=== PATIENT | female | born 1940 | race Caucasian/White ===

== ENCOUNTER 2017-06-20 11:31 | Inpatient (IN) | payer MEDICARE, OTHER ==
[~2017-06-20] VITALS: Ht 167.6 cm; Wt 120.2 kg
[~2017-06-20 11:31] MED LIST: ALBU8.5H8 IH; ALPR-323 PO; ASPI-605 PO; FAMO40TA7 PO; LORA-588 PO; METO50TA16 PO; MOME17SP NS; OLOP2.5D OP; SPIR25TA PO
--- NOTE | 2017-06-20 11:35 | NUR ---
BIBRA 909 C/O GENERALIZED WEAKNESS, BACK PAIN, BLISTERS NOTED ON BILATERAL DORSAL FEET, PITTING EDEMA TO BILATERAL LOWER EXTREMITIES , NAD NOTED, VSS, RESP EVEN AND UNLABORED, PT WAS PUT ON MONITOR, WAITING FOR MD MERCADO.
[2017-06-20 12:29] LABS: BASOPHILS # (AUTO) 0.3 /CMM (0.0-0.2); BASOPHILS % (AUTO) 2.8 % (0.0-2.0); EOSINOPHILS % (AUTO) 0.1 % (0.0-6.0); HEMATOCRIT 43 % (33-45); LYMPHOCYTES # (AUTO) 0.3 /CMM (0.8-4.8); LYMPHOCYTES % (AUTO) 3.7 % (20.0-44.0); MEAN CORPUSCULAR HEMOGLOBIN 33 PG (26.0-33.0); MEAN CORPUSCULAR HGB CONC 35 g/dl (31.0-36.0); MEAN CORPUSCULAR VOLUME 94 fL (82-100); MONOCYTES # (AUTO) 0.2 /CMM (0.1-1.30); MONOCYTES % (AUTO) 2.5 % (2.0-12.0); NEUTROPHILS # (AUTO) 8.4 /CMM (1.8-8.9); NEUTROPHILS % (AUTO) 90.9 % (43.0-81.0); PLATELET COUNT (AUTO) 141 /CMM (150-450); RDW COEFFICIENT OF VARIATION 13.6 (11.5-15.0); RED BLOOD CELL COUNT(AUTO) 4.59 MIL/uL (4.0-5.2); WHITE BLOOD COUNT (AUTO) 9.2 K/uL (4.3-11.0)
[2017-06-20 12:33] LABS: INR 1.28 (0.85-1.15)
[2017-06-20 12:33] LABS: APPEARANCE,URINE Clear (CLEAR); BILIRUBIN,URINE Negative (NEGATIVE); BLOOD, URINE Negative Ery/uL (NEGATIVE); COLOR,URINE Yellow (YELLOW); KETONES,URINE Negative (NEGATIVE); LEUKOCYTE ESTERASE ,URINE Negative (NEGATIVE); NITRITE, URINE Negative (NEGATIVE); PH,URINE 7.5 (5.0-8.0); PROTEIN,URINE Negative (NEGATIVE); UGLUCOSE Negative (NEGATIVE); UROBILINOGEN,URINE 0.2 EU/dL (0.2)
[2017-06-20 12:36] LABS: TROPONIN I 0.022 ng/mL (0.00-0.056)
--- NOTE | 2017-06-20 12:46 | NUR ---
CALLED [facility] ADMISSIONS AND RECORDS DEPARTMENT,THEY ARE CLOSED. I CALLED THE EMERGENCY DEPARTMENT , THEY TOLD ME ONLY MEDICAL RECORDS DEPARTMENT CAN HELP ME.
[2017-06-20 12:47] LABS: ALANINE AMINOTRANSFERASE 39 U/L (12-78); ALBUMIN 3.1 g/dL (3.4-5.0); ALKALINE PHOSPHATASE 96 U/L (46-116); ASPARTATE AMINOTRANSFERASE 40 U/L (15-37); B-TYPE NATRIURETIC PEPTIDE 274 PG/ML (0-125); BILIRUBIN,DIRECT 0.7 mg/dL (0.0-0.2); BILIRUBIN,TOTAL 2.7 mg/dL (0.2-1.0); CALCIUM, SERUM 9.5 mg/dL (8.5-10.1); CARBON DIOXIDE 32 mmol/L (21-32); CHLORIDE 96 mmol/L (98-107); CREATININE 1.3 mg/dL (0.6-1.3); GLUCOSE 131 mg/dL (74-106); SODIUM SERUM 135 mmol/L (136-145); TOTAL PROTEIN, SERUM 6.9 g/dL (6.4-8.2); UREA NITROGEN, BLOOD 51 mg/dL (7-18)
[2017-06-20 12:49] LABS: POTASSIUM 2.8 mmol/L (3.5-5.1)
[2017-06-20] MEDS ORDERED: POTASSIUM CHLORIDE 20 MEQ TAB.PRT.SR PO ONE ×2 (13:00→13:04)
[2017-06-20] MEDS: POTASSIUM CL. PREMIX PERIPHER. 50 ML IV SCH ×2 (13:00→14:50)
--- NOTE | 2017-06-20 13:52 | NUR ---
PT TO [facility]SCAN
[2017-06-20] MEDS ORDERED: METO-356 PO (14:19)
[2017-06-20] MEDS ORDERED: APIX5TAB PO (14:19)
[2017-06-20] MEDS ORDERED: DIPH1TAB PO (14:19)
[2017-06-20] MEDS ORDERED: FURO-144 PO (14:19)
[2017-06-20] MEDS ORDERED: AMIO200T2 PO (14:19)
[2017-06-20] MEDS ORDERED: FLUT16SP NS (14:19)
[2017-06-20] MEDS ORDERED: BENZ-13 PO (14:19)
--- NOTE | 2017-06-20 14:25 | NUR ---
PT BACK FROM [facility]SCAN
[2017-06-20 14:45] VITALS: BP 119/76
[2017-06-20 14:55] VITALS: BP 125/60
--- NOTE | 2017-06-20 14:55 | NUR ---
PATIENT ARRIVED TO THE UNIT VIA GURNEY ACCOMPANIED BY PROFILING MACHINE SET UP OPERATOR TOOL AND TECH. PATIENT IS A/O X3, COOPERATIVE OBESE FEMALE. ASSISTED TO BED SAFELY. BED IS LOCKED, IN LOWEST POSITION, SIDE RIALS UP X3, BED ALARM IS ON. CALL LIGHT WITHIN REACH. PATIENT EDUCATED TO USE THE CALL LIGHT TO CALL FOR ASSISTANCE. VERBALIZED UNDERSTANDING. WILL CONTINUE TO ASSES/MONITOR THROUGHOUT THE SHIFT.
[2017-06-20] MEDS ORDERED: DIPHENOXYLATE HCL/ATROP SULF 1 UDTAB TABLET PO PRN (16:30)
[2017-06-20] MEDS ORDERED: MAG HYDROX/AL HYDROX/SIMETH 30 ML UDC PO PRN (16:30)
[2017-06-20] MEDS ORDERED: ENOXAPARIN SODIUM 40 MG/0.4 ML DISP.SYRIN SQ SCH (16:30)
[2017-06-20] MEDS ORDERED: ONDANSETRON HCL/PF 4 MG/2 ML VIAL IVP PRN (16:30)
[2017-06-20] MEDS ORDERED: HYDROCODONE/APAP 10/325MG 1 EA TABLET PO PRN (16:30)
[2017-06-20] MEDS ORDERED: ACETAMINOPHEN 325 MG TABLET PO PRN (16:30)
[2017-06-20] MEDS ORDERED: FLUTICASONE PROPIONATE 16 GM BOTTLE NS PRN (16:30)
[2017-06-20] MEDS ORDERED: MAGNESIUM HYDROXIDE 30 ML UDC PO PRN (16:30)
[2017-06-20] MEDS ORDERED: Z GUARD REMEDY 2 OZ OINT TP PRN (16:30)
[2017-06-20] MEDS ORDERED: APIXABAN 5 MG TABLET PO ONE (17:00)
[2017-06-20] MEDS: ALPRAZOLAM 0.25 MG TABLET PO SCH (17:34)
[2017-06-20] MEDS: BENZONATATE 100 MG CAPSULE PO PRN ×2 (17:37→23:28)
[2017-06-20] MEDS: IV 1/2NS 1000 ML 1,000 ML IV PRN (17:38)
[2017-06-20] MEDS: HYDROMORPHONE INJ 0.5 MG/0.5 ML SYRINGE IV PRN ×2 (17:38→23:31)
[2017-06-20] MEDS: APIXABAN 5 MG TABLET PO SCH (18:55)
--- NOTE | 2017-06-20 19:15 | NUR ---
RN OPENING NOTES PATIENT RECEIVED IN BED, ASLEEP BUT EASILY AROUSABLE, ALERT AND ORIENTED X 4, NO SOB NOTED, BREATHING EVEN AND UNLABORED, NO C/O PAIN AT THIS TIME, IN NO ACUTE DISTRESS. PATIENT CONTINUES TO RECEIVE IVF ORDERED, ALL PATIENT'S NEEDS ATTENDED TO AT THIS TIME, PLACED BED IN LOW POSITION AND LOCKED IN PLACE. WILL CONTINUE TO MONITOR PT.
--- NOTE | 2017-06-20 19:16 | NUR ---
EMISSIONS TECHNICIAN CLOSING NOTE SBAR REPORT GIVEN ON PATIENT TO GIS TECHNICIAN NURSE FOR REGULO. PATIENT IS A/O X3, COOPERATIVE OBESE FEMALE. ASSISTED TO BED SAFELY. BED IS LOCKED, IN LOWEST POSITION, SIDE RIALS UP X3, BED ALARM IS ON. CALL LIGHT WITHIN REACH. PATIENT EDUCATED TO USE THE CALL LIGHT TO CALL FOR ASSISTANCE. VERBALIZED UNDERSTANDING. PAIN IS CURRENTLY CONTROLLED WITH ADMINISTERED HYDROMORPHONE. PATIENT HAS MULTIPLE SKIN CONDITIONS. ALL DOCUMENTED, PICTURES POSTED IN THE CHART. ALL DUE MEDICATIONS ADMINISTERED. ENDORSED TO THE GIS TECHNICIAN NURSE FOR REGULO.
[2017-06-20 20:00] VITALS: BP 126/75
[2017-06-21] VITALS (8 sets, daily range): BP systolic 100–132; BP diastolic 60–82
[2017-06-21] MEDS: HYDROMORPHONE INJ 0.5 MG/0.5 ML SYRINGE IV PRN ×3 (04:01→17:59)
[2017-06-21] MEDS: IV 1/2NS 1000 ML 1,000 ML IV PRN ×2 (06:42→20:06)
--- NOTE | 2017-06-21 06:57 | NUR ---
RN CLOSING NOTE PATIENT IN BED, ALERT AND ORIENTED X 3, VERBALLY RESPONSIVE. NOTED WITH NO SOB, BREATHING EVEN AND UNLABORED, IN NO ACUTE DISTRESS. ALL PATIENT'S NEEDS ATTENDED TO. CALL LIGHT PLACED WITHIN EASY REACH, BED LOCKED IN PLACE AND IN LOW POSITION. CONTINUES TO RECEIVE IVF ORDER VIA IV PERIPHERAL LINE ON LEFT UPPER ARM G#20. CALL LIGHT PLACED WITHIN EASY REACH. WILL ENDORSE TO AM NURSE FOR CONTINUITY OF CARE.
[2017-06-21 07:26] LABS: BASOPHILS % (AUTO) 0.4 % (0.0-2.0); EOSINOPHILS % (AUTO) 0.7 % (0.0-6.0); HEMATOCRIT 38 % (33-45); HEMOGLOBIN 12.9 g/dL (11.5-14.8); LYMPHOCYTES # (AUTO) 1.1 /CMM (0.8-4.8); LYMPHOCYTES % (AUTO) 16.9 % (20.0-44.0); MEAN CORPUSCULAR HEMOGLOBIN 33 PG (26.0-33.0); MEAN CORPUSCULAR HGB CONC 34 g/dl (31.0-36.0); MEAN CORPUSCULAR VOLUME 98 fL (82-100); MONOCYTES # (AUTO) 0.8 /CMM (0.1-1.30); MONOCYTES % (AUTO) 12.6 % (2.0-12.0); NEUTROPHILS # (AUTO) 4.4 /CMM (1.8-8.9); NEUTROPHILS % (AUTO) 69.4 % (43.0-81.0); PLATELET COUNT (AUTO) 106 /CMM (150-450); RDW COEFFICIENT OF VARIATION 14.7 (11.5-15.0); RED BLOOD CELL COUNT(AUTO) 3.86 MIL/uL (4.0-5.2); WHITE BLOOD COUNT (AUTO) 6.4 K/uL (4.3-11.0)
[2017-06-21 07:38] LABS: CALCIUM, SERUM 8.6 mg/dL (8.5-10.1); CARBON DIOXIDE 36 mmol/L (21-32); CHLORIDE 100 mmol/L (98-107); CREATININE 0.9 mg/dL (0.6-1.3); GLUCOSE 82 mg/dL (74-106); MAGNESIUM 1.9 mg/dL (1.8-2.4); PHOSPHORUS 2.8 mg/dL (2.5-4.9); POTASSIUM 3.2 mmol/L (3.5-5.1); SODIUM SERUM 140 mmol/L (136-145); UREA NITROGEN, BLOOD 34 mg/dL (7-18)
--- NOTE | 2017-06-21 07:41 | NUR ---
HULL BUILDER OPENING NOTES RECEIVED PATIENT IN BED ASLEEP COMFORTABLY. EASILY AROUSED WITH VERBAL STIMULI. NO APPARENT DISTRESS NOTED. RESPIRATIONS EVEN AND UNLABORED. PATIENT KEPT CLEAN AND COMFORTABLE. PERIPHERAL IV ON LEFT UPPER ARM #20, PATENT AND INTACT, WITH IV FLUIDS INFUSING AT THIS TIME. ALL SAFETY MEASURES AR IN PLACE, BED IS IN LOW LOCKED POSITION, CALL LIGHT WITHIN EASY REACH. WILL CONTINUE TO MONITOR.
[2017-06-21 07:50] LABS: CHOLESTEROL 112 mg/dL (<200); HDL CHOLESTEROL 41 mg/dL (40-60); LDL 61 mg/dL (0-99); THYROID STIMULATING HORMONE 3.205 uIU/mL (0.358-3.74); TRIGLYCERIDES 73 mg/dL (30-150)
[2017-06-21] MEDS: ALPRAZOLAM 0.25 MG TABLET PO SCH ×3 (09:00→17:58)
--- NOTE | 2017-06-21 09:00 | NUR ---
MS RN HELD MORNING MEDICATIONS DUE TO PATIENTS NPO ORDER. REPORTED, WAITING FOR MD'S CLARIFICATION.
--- NOTE | 2017-06-21 10:31 | NUR ---
television presenter notes Informed Dr. Dailey regarding patient is NPO for MRI but no order and per MD to discontinue NPO status and resume previous diet order. All orders carried out and noted. Will continue to monitor accordingly.
[2017-06-21] MEDS: SPIRONOLACTONE 25 MG TABLET PO SCH (10:51)
[2017-06-21] MEDS: AMIODARONE HCL 200 MG TABLET PO SCH (10:52)
[2017-06-21] MEDS: APIXABAN 5 MG TABLET PO SCH ×2 (10:53→17:58)
[2017-06-21] MEDS: FUROSEMIDE 40 MG TABLET PO SCH (10:54)
[2017-06-21] MEDS: METOPROLOL SUCCINATE 25 MG TAB.SR.24H PO SCH (10:54)
--- NOTE | 2017-06-21 10:57 | NUR ---
MANAGER ACTIVITIES NOTES PATIENT NPO WAS CLEARED BY MD. ORDERED TO ADMINISTER ALL MORNING MEDICATION.
--- NOTE | 2017-06-21 10:58 | NUR ---
HELD TOPROL DUE TO HR OF 50/MIN
--- NOTE | 2017-06-21 10:59 | NUR ---
PATIENT REFUSED XANAX AT THIS TIME.
[2017-06-21] MEDS: POTASSIUM CHLORIDE 20 MEQ TAB.PRT.SR PO SCH ×2 (12:20→14:08)
[2017-06-21] MEDS: BENZONATATE 100 MG CAPSULE PO PRN (14:09)
[2017-06-21] MEDS ORDERED: IOHEXOL-300 100 ML VIAL IV ONE (16:59)
[2017-06-21] MEDS ORDERED: IV NS 0.9% 250 ML IV ONE (16:59)
--- NOTE | 2017-06-21 19:04 | NUR ---
MS RN CLOSING NOTES. PATIENT IN BED RESTING COMFORTABLY, ASLEEP EASILY AROUSED WITH VERBAL STIMULI. ON ROOM AIR. RESPIRATIONS EVEN AND UNLABORED DENIES SOB, CHEST PAIN. NO APPARENT SIGNS OF DISTRESS OR DISCOMFORT NOTED OR REPORTED AT THIS TIME. PATIENT WAS GIVEN DILAUDID FOR PAIN AFTER COMING BACK FROM CT AT 1759. LEFT HAND HEPLOCK 20G, PATENT AND INTACT WITH IV FLUIDS RUNNING AT 75ML/HR. SAFETY MEASURES PROVIDED, BED IN LOW LOCKED POSITION, SIDE RAILS UP X2, CALL LIGHT WITHIN EASY REACH. WILL ENDORSE TO PM SHIFT FOR CONTINUATION OF CARE.
--- NOTE | 2017-06-21 19:46 | NUR ---
MRI APPROVED, IT WILL BE DONE TOMORROW.
--- NOTE | 2017-06-21 19:55 | NUR ---
Ms/rn opening notes Patient in bes,awake, resting comfortably in bed. Iv on left hand, check for patency and no redness. Skin warm to touch, Able to verbalixe needs. no s/s of guarding or grimace. bed in lock position, call lights within reach. offered fluids. Will replace iv fluids. will continue to monitor.
--- NOTE | 2017-06-21 23:53 | NUR ---
ms/rn notes Patient reported back pain 10/10 , will prvode pain medication and assist reposition for comfort.
[2017-06-22] VITALS (9 sets, daily range): BP systolic 109–132; BP diastolic 57–70
[2017-06-22] MEDS: BENZONATATE 100 MG CAPSULE PO PRN ×2 (03:06→22:50)
[2017-06-22 06:50] LABS: CALCIUM, SERUM 8.6 mg/dL (8.5-10.1); CARBON DIOXIDE 32 mmol/L (21-32); CHLORIDE 101 mmol/L (98-107); GLUCOSE 90 mg/dL (74-106); POTASSIUM 3.2 mmol/L (3.5-5.1); SODIUM SERUM 141 mmol/L (136-145); UREA NITROGEN, BLOOD 33 mg/dL (7-18)
--- NOTE | 2017-06-22 06:50 | NUR ---
ms/rn notes Mri of L spine without contrast order, patient was informed and signed consent and checklist done, Home medications will be picked up by caregiver.
--- NOTE | 2017-06-22 06:57 | NUR ---
310-2 rn notes Patient iresting in bed, respirations even and unlabored, on room air. Pain management monitoirng, Complain of back pain. Cooperative to care. Reposition for comfort and elevate feet. BLE edema . Skin warm to touch, Call lights within reach, provide fluids, bed in lock positon, IV on left hand patent, will endorse to am rn for ap. Procedure MRI without contrast order, patient was informed, signed consent.
--- NOTE | 2017-06-22 07:00 | NUR ---
RN NOTES: PATIENT RESTING IN BED. AOX4. NONLABORED BREATHING ON ROOM AIR. PATIENT DENIES PAIN. IV SITE ON LEFT HAND PATENT AND INTACT. BED IN LOWEST LOCKED POSITION. CALL LIGHT WITHIN REACH. PATIENT ON TELE MONITOR WITH CONTROLLED AFIB WITH HR IN 90S. WILL CONTINUE TO MONITOR
[2017-06-22] MEDS: HYDROMORPHONE INJ 0.5 MG/0.5 ML SYRINGE IV PRN ×3 (08:53→22:49)
[2017-06-22] MEDS: SPIRONOLACTONE 25 MG TABLET PO SCH (09:55)
[2017-06-22] MEDS: APIXABAN 5 MG TABLET PO SCH ×2 (09:55→18:05)
[2017-06-22] MEDS: ALPRAZOLAM 0.25 MG TABLET PO SCH ×3 (09:55→18:04)
[2017-06-22] MEDS: AMIODARONE HCL 200 MG TABLET PO SCH (10:45)
[2017-06-22] MEDS: METOPROLOL SUCCINATE 25 MG TAB.SR.24H PO SCH (10:45)
--- NOTE | 2017-06-22 10:45 | NUR ---
RN NOTES: AMIODARONE AND METOPROLOL AM DOSE HELD-- BP AT 100/58 WITH HEART RATE 70
[2017-06-22] MEDS: FUROSEMIDE 40 MG TABLET PO SCH (11:17)
[2017-06-22] MEDS: POTASSIUM CHLORIDE 20 MEQ TAB.PRT.SR PO SCH ×2 (11:18→12:47)
--- NOTE | 2017-06-22 11:20 | NUR ---
RN NOTES: PATIENT BEING MONITORED FOR LOW BLOOD PRESSURE THROUGHTOUT YONATHAN. PATIENT REFUSED LASIX EARLIER, NOW ADMINISTERED. BP WNL
--- NOTE | 2017-06-22 11:58 | NUR ---
WOUND CARE CONSULT: PT PRESENTS WITH BLISTERS TO BILATERAL DORSAL FEET, PRESENT ON ADMISSION. RT FOOT BLISTER IS OPEN AND LEFT IS INTACT BUT FLUID FILLED. PT ALSO NOTED TO HAVE BRUISING TO LOWER EXTREMITIES, RASH TO ABDOMINAL/GROIN SKIN FOLDS AND TINY SCABS TO LEFT BUTTOCK AREA, ALL PRESENT ON ADMISSION. PT GETS UP TO COMMODE WITH ASSISTANCE. CURRENT SANTOSH SCORE IS 16. PT IS CONTINENT. ALL SKIN PROTECTION MEASURES IN PLACE AND DISCUSSED WITH NURSING STAFF. WOUND CARE RECOMMENDATIONS DISCUSSED WITH NURSING STAFF. WILL SEE PRN. M D IN AGREEMENT WITH PLAN OF CARE.
[2017-06-22] MEDS: CLOTRIMAZOLE 1% 15 GM TUBE TP SCH ×2 (14:00→18:06)
--- NOTE | 2017-06-22 14:15 | NUR ---
RN NOTES: PATIENT REFUSING XANAX EARLIER , TOOK MEDICATION NOW
--- NOTE | 2017-06-22 14:15 | NUR ---
RN NOTES PATIENT REFU
--- NOTE | 2017-06-22 14:30 | NUR ---
RN NOTES: PATIENT REFUSING LOTRIMIN NOW, KEPT CLEAN AND DRY, ACCORDING TO PATIENT, SHE WANTS IT LATER. WILL CONTINUE TO OFFER.
--- NOTE | 2017-06-22 14:48 | NUR ---
RN NOTES: PER DR RC SIMTH ORDERED IV FLUIDS TODAY. SLIGHT CRACKLES HEARD ON LEFT LOWER LOBE UPON AUSCULATION
--- NOTE | 2017-06-22 15:42 | NUR ---
rn notes: HR noted to be 99-110 on monitor, patient turning and repositioning. no signs of distress. no sob. will continue to monitor. warm packs offered for lower back pain
--- NOTE | 2017-06-22 15:47 | NUR ---
RN NOTES: PATIENT RESTING IN BED WITH HEART RATE OF 88. NO SOB NOTED
--- NOTE | 2017-06-22 16:53 | NUR ---
PATIENT BEING MONITORED FOR SIGNS OF BLEEDING.NO ACTIVE SIGNS OF BLEEDING NOTED
--- NOTE | 2017-06-22 19:30 | NUR ---
NUMERICAL CONTROL OPERATOR NOTE PATIENT RESTING IN BED. AOX4. NONLABORED BREATHING ON ROOM AIR. PATIENT DENIES PAIN. IV SITE ON LEFT HAND PATENT AND INTACT. BED IN LOWEST LOCKED POSITION. CALL LIGHT WITHIN REACH. PATIENT ON TELE MONITOR WITH CONTROLLED AFIB WITH HR IN 70S. BED LOCKED AND IN LOWEST POSITION. SIDE RAILS UP CALL LIGHT WITHIN REACH.
--- NOTE | 2017-06-22 19:40 | NUR ---
RN NOTES: PATIENT RESTING IN BED. AOX4. NONLABORED BREATHING ON ROOM AIR. PATIENT DENIES PAIN. IV SITE ON LEFT HAND PATENT AND INTACT. BED IN LOWEST LOCKED POSITION. CALL LIGHT WITHIN REACH. PATIENT ON TELE MONITOR WITH CONTROLLED AFIB WITH HR IN 70S. MILK OF MAGNESIA ADMINSTERED, PATIENT COMPLAINING OF CONSTIPATION. ENDORSED TO NEXT SHIFT DURING SHIFT, PATIENT ENCOURAGED TO TURN AND REPOSITION EVERY 2 HOURS, ENCOURAGED TO KEEP CLEAN AND DRY. PATIENT REFUSING TO WEAR A DIAPER, STATES THAT SHE WANTS TO ONLY WEAR UNDERWEAR AND PADS ON. PATIENT REFUSED TO HAVE WOUND CARE DONE LOWER EXTREMITIES AGAIN, STATING THAT IT HAS BEEN DONE EARLIER. BENEFITS AND RISKS EXPLAINED
[2017-06-23] VITALS: BP 116/63
[2017-06-23 04:00] VITALS: BP 104/62
--- NOTE | 2017-06-23 06:47 | NUR ---
GROOVER RUNNER NOTE PATIENT STABLE. SLEEPING AT THIS TIME. ALL NEEDS MET AND ATTENDED TO. WILL ENDORSE TO DAY SHIFT FOR REGULO.
--- NOTE | 2017-06-23 07:05 | NUR ---
RN NOTES: RN NOTES: PATIENT RESTING IN BED. AOX4. NONLABORED BREATHING ON ROOM AIR. PATIENT DENIES PAIN. IV SITE ON LEFT HAND PATENT AND INTACT. BED IN LOWEST LOCKED POSITION. CALL LIGHT WITHIN REACH. PATIENT ON TELE MONITOR WITH CONTROLLED AFIB WITH HR IN 70S. BED IN LOWEST LOCKED POSITION. CALL LIGHT WITHIN REACH
[2017-06-23] MEDS: HYDROMORPHONE INJ 0.5 MG/0.5 ML SYRINGE IV PRN (08:16)
[2017-06-23] MEDS: METOPROLOL SUCCINATE 25 MG TAB.SR.24H PO SCH (09:00)
[2017-06-23] MEDS ORDERED: HYDROGEL DRESSING 90 GM TUBE TP SCH (09:00)
[2017-06-23] MEDS: AMIODARONE HCL 200 MG TABLET PO SCH (09:00)
[2017-06-23] MEDS ORDERED: CLOTRIMAZOLE 1% 15 GM TUBE TP SCH (09:00)
--- NOTE | 2017-06-23 09:00 | NUR ---
RN NOTES: PATIENT REFUSING TO GET CHANGED, AND WOUND TREATMENT. STATES THAT SHE WANTS IT LATER. AND THAT SHE WANTS TO HAVE A BOWEL MOVEMENT FIRST
[2017-06-23 09:50] VITALS: BP 120/70
[2017-06-23] MEDS: APIXABAN 5 MG TABLET PO SCH (10:00)
[2017-06-23] MEDS: FUROSEMIDE 40 MG TABLET PO SCH (10:21)
[2017-06-23] MEDS: SPIRONOLACTONE 25 MG TABLET PO SCH (10:21)
[2017-06-23] MEDS: ALPRAZOLAM 0.25 MG TABLET PO SCH ×2 (10:22→14:34)
--- NOTE | 2017-06-23 12:00 | NUR ---
RN NOTES: ELQUIS HELD IN AM. BOWEL MOVEMENT NOTED TO BE TARRY, BLACK. PATIENT DENIES ABDOMINAL CRAMPS, DENIES NAUSEA AND VOMITTING. DISCUSSED WITH PATIENT BENEFITS AND RISKS OF ELQUIS. STOOL COLLECTED. PATIENT STATED THAT SHE DOES NOT WANT TO TAKE IT TODAY. VS WNL. YIN BARAJAS NP, INFORMED. NO NEW ORDERS
[2017-06-23] MEDS ORDERED: HYDR-3974 PO (12:01)
[2017-06-23] MEDS ORDERED: CLOT15CR35 TP (12:01)
[2017-06-23] MEDS ORDERED: Hydrocodone/Apap 10/325MG PO (12:01)
[2017-06-23] MEDS: HYDROCODONE/APAP 5/325MG 1 EACH TABLET PO PRN ×2 (12:23→16:28)
[2017-06-23] MEDS: CLOTRIMAZOLE 1% 15 GM TUBE TP SCH (12:24)
[2017-06-23 12:38] LABS: BASOPHILS % (AUTO) 0.4 % (0.0-2.0); EOSINOPHILS # (AUTO) 0.1 /CMM (0.0-0.7); EOSINOPHILS % (AUTO) 1.3 % (0.0-6.0); HEMATOCRIT 37 % (33-45); HEMOGLOBIN 12.6 g/dL (11.5-14.8); LYMPHOCYTES # (AUTO) 0.9 /CMM (0.8-4.8); LYMPHOCYTES % (AUTO) 11.9 % (20.0-44.0); MEAN CORPUSCULAR HEMOGLOBIN 34 PG (26.0-33.0); MEAN CORPUSCULAR HGB CONC 34 g/dl (31.0-36.0); MEAN CORPUSCULAR VOLUME 98 fL (82-100); MONOCYTES # (AUTO) 0.7 /CMM (0.1-1.30); MONOCYTES % (AUTO) 9.2 % (2.0-12.0); NEUTROPHILS # (AUTO) 6.1 /CMM (1.8-8.9); NEUTROPHILS % (AUTO) 77.2 % (43.0-81.0); PLATELET COUNT (AUTO) 132 /CMM (150-450); RDW COEFFICIENT OF VARIATION 14.5 (11.5-15.0); RED BLOOD CELL COUNT(AUTO) 3.76 MIL/uL (4.0-5.2); WHITE BLOOD COUNT (AUTO) 7.9 K/uL (4.3-11.0)
[2017-06-23 12:46] LABS: CALCIUM, SERUM 8.8 mg/dL (8.5-10.1); CARBON DIOXIDE 34 mmol/L (21-32); CHLORIDE 104 mmol/L (98-107); CREATININE 1.2 mg/dL (0.6-1.3); GLUCOSE 148 mg/dL (74-106); POTASSIUM 3.1 mmol/L (3.5-5.1); SODIUM SERUM 142 mmol/L (136-145); UREA NITROGEN, BLOOD 33 mg/dL (7-18)
[2017-06-23 12:52] LABS: ALANINE AMINOTRANSFERASE 41 U/L (12-78); ALBUMIN 2.7 g/dL (3.4-5.0); ALKALINE PHOSPHATASE 88 U/L (46-116); ASPARTATE AMINOTRANSFERASE 42 U/L (15-37); BILIRUBIN,DIRECT 0.6 mg/dL (0.0-0.2); BILIRUBIN,TOTAL 2.1 mg/dL (0.2-1.0); TOTAL PROTEIN, SERUM 6.1 g/dL (6.4-8.2)
[2017-06-23] MEDS ORDERED: POTASSIUM CHLORIDE 20 MEQ TAB.PRT.SR PO ONE (14:00)
[2017-06-23] MEDS ORDERED: POTASSIUM CHLORIDE 20 MEQ TAB.PRT.SR PO SCH (14:00)
--- NOTE | 2017-06-23 14:31 | NUR ---
RN NOTES PATIENT REFUSING XANAX EARLIER, AGREED TO TAKE NOW. POTASSIUM 40 MEQ PER YIN BARAJAS NP
[2017-06-23 16:00] VITALS: BP 113/58
--- NOTE | 2017-06-23 17:29 | NUR ---
RN NOTES: PATIENT DISCHARGED TO [facility] PER YIN BARAJAS, POLE SHAVER, ORDERS. PATIENT STABLE. VS WNL. DENIES PAIN AT THE MOMENT. AOX4., DENIES ANXIETY AT THE MOMENT. NO FACIAL GRIMACING NOTED. IV LINE REMOVED. SPO2 AT ROOM AIR WNL. WOUND CARE DONE DURING SHIFT. PATIENT BLISTERS ON BUTTOCKS PEELING AND A PINK BED NOTED. CLEANSED WITH NS, TREATMENT PER ORDERS, COVERED WITH MEPLIX.PATIENT EDUCATED ON HYGIENE. SKIN PICTURES IN CHART PLACED. IV LINE REMOVED. ALL VALUABLES RETURNED TO PATIENT. MEDICATIONS GIVEN TO CAREGIVER,MARANDA PER PATIENT'S REQUEST TO BE RETURNED TO PATIENT'S HOME. NO SIGNS OF BLEEDING DURING SHIFT. H&H WNL. PATIENT LEFT VIA AMBULANCE, REPORT GIVEN TO EMORY MACEDO AT FACILITY
--- NOTE | 2017-06-23 17:30 | NUR ---
RN NOTES: PATIENT TOLERATED PHYSICAL THERAPY TODAY WITH NO COMPLICATIONS. TLSO BRACE SENT WITH PATIENT UPON DISCHARGE. EMORY MACEDO INSTRUCTED AND NOTIFIED AT [facility]
== END 2017-06-23 17:30 | DRG 543 ==
LOC: ER 11:36 → TELE 14:02 → MED 06-23 09:31
DX: M48.56XA Collapsed vertebra, not elsewhere classified, lumbar region, initial encounter for fracture (principal); E44.0 Moderate protein-calorie malnutrition; D68.59 Other primary thrombophilia; D69.6 Thrombocytopenia, unspecified; G62.9 Polyneuropathy, unspecified; E66.01 Morbid (severe) obesity due to excess calories; I48.91 Unspecified atrial fibrillation; I11.0 Hypertensive heart disease with heart failure; I50.32 Chronic diastolic (congestive) heart failure; L03.115 Cellulitis of right lower limb; L03.116 Cellulitis of left lower limb; Z68.41 Body mass index [BMI] 40.0-44.9, adult; F32.9 Major depressive disorder, single episode, unspecified; F41.9 Anxiety disorder, unspecified; W19.XXXA Unspecified fall, initial encounter; M79.7 Fibromyalgia; K21.9 Gastro-esophageal reflux disease without esophagitis; K74.60 Unspecified cirrhosis of liver; Z85.828 Personal history of other malignant neoplasm of skin; Z88.0 Allergy status to penicillin; Z88.2 Allergy status to sulfonamides; Y93.9 Activity, unspecified; Y92.009 Unspecified place in unspecified non-institutional (private) residence as the place of occurrence of the external cause; R23.8 Other skin changes; R74.8 Abnormal levels of other serum enzymes; R00.1 Bradycardia, unspecified
CPT/HCPCS: 36415; 71045-TC; 72131-TC; 74178; 76700-TC; 80048-TC; 80061-TC; 80076-TC; 81000-TC; 82962-TC; 83735-TC; 83880; 84100-TC; 84443-TC; 84484-TC; 85025-TC; 85730-TC; 87081-TC; 93307-TC; 97116-TC; 97530-TC; A4606; A6248; A6253; A6402; J3480; J3490; J7040; J7050; Q9967; Z7610

== ENCOUNTER 2019-03-25 10:47 | Emergency (ER) | payer MEDICARE, OTHER ==
[~2019-03-25] VITALS: Ht 167.6 cm; Wt 108.0 kg
[~2019-03-25 10:47] MED LIST changes: -ALBU8.5H8 IH; +AMIO200T4 PO; +APIX5TAB PO; -ASPI-605 PO; +BENZ-13 PO; +CLOT15CR35 TP; +DIPH1TAB PO; +FLUT16SP NS; +FURO-144 PO; +HYDR-3974 PO; +Hydrocodone/Apap 10/325MG PO; +METO25TA4 PO; -METO50TA16 PO; -MOME17SP NS; -OLOP2.5D OP
--- NOTE | 2019-03-25 10:50 | NUR ---
CAME IN FOR R RIB PAIN SINCE YESTERDAY, -TRAUMA. TO ER BED 9, HOOKED TO MONITOR, CHANGED TO HOSP [facility], AWAITING MD MERCADO.
[2019-03-25] MEDS ORDERED: ASPIRIN 81 MG TAB.CHEW PO ONE (11:00)
[2019-03-25] MEDS ORDERED: NITROGLYCERIN PACKET 1 GM PACKET TD ONE (11:00)
--- NOTE | 2019-03-25 11:03 | NUR ---
GAS STATION SERVICE ATTENDANT AT BEDSIDE
[2019-03-25 11:04] LABS: BASOPHILS # (AUTO) 0.1 /CMM (0.0-0.2); BASOPHILS % (AUTO) 3.8 % (0.0-2.0); EOSINOPHILS % (AUTO) 4.3 % (0.0-6.0); HEMATOCRIT 31 % (33-45); HEMOGLOBIN 9.9 g/dL (11.5-14.8); LYMPHOCYTES # (AUTO) 1.1 /CMM (0.8-4.8); LYMPHOCYTES % (AUTO) 32.9 % (20.0-44.0); MEAN CORPUSCULAR HGB CONC 32 g/dl (31.0-36.0); MEAN CORPUSCULAR VOLUME 85 fL (82-100); MONOCYTES # (AUTO) 0.5 /CMM (0.1-1.30); MONOCYTES % (AUTO) 14.1 % (2.0-12.0); NEUTROPHILS # (AUTO) 1.5 /CMM (1.8-8.9); NEUTROPHILS % (AUTO) 44.9 % (43.0-81.0); PLATELET COUNT (AUTO) 169 /CMM (150-450); WHITE BLOOD COUNT (AUTO) 3.4 K/uL (4.3-11.0)
[2019-03-25 11:21] LABS: ALANINE AMINOTRANSFERASE 22 U/L (12-78); ALBUMIN 3.3 g/dL (3.4-5.0); ALKALINE PHOSPHATASE 109 U/L (46-116); ASPARTATE AMINOTRANSFERASE 31 U/L (15-37); BILIRUBIN,DIRECT 0.4 mg/dL (0.0-0.2); BILIRUBIN,TOTAL 1.4 mg/dL (0.2-1.0); CALCIUM, SERUM 8.7 mg/dL (8.5-10.1); CARBON DIOXIDE 33 mmol/L (21-32); CHLORIDE 97 mmol/L (98-107); CREATININE 2.5 mg/dL (0.6-1.3); GLUCOSE 143 mg/dL (74-106); SODIUM SERUM 137 mmol/L (136-145); TOTAL PROTEIN, SERUM 6.9 g/dL (6.4-8.2); UREA NITROGEN, BLOOD 53 mg/dL (7-18)
[2019-03-25 11:27] LABS: POTASSIUM 2.4 mmol/L (3.5-5.1)
[2019-03-25] MEDS ORDERED: POTASSIUM CHLORIDE 20 MEQ TAB.PRT.SR PO ONE ×2 (12:30→12:35)
--- NOTE | 2019-03-25 12:52 | NUR ---
IV removed. Catheter intact and site benign. Pressure and 4x4 applied to site. No bleeding noted.Patient discharged and assisted to waiting room in stable condition. Written and verbal after care instructions given. Patient verbalizes understanding of instruction.
[2019-03-25 12:56] VITALS: BP 118/61
== END 2019-03-25 12:56 | disposition home or self-care (01) ==
LOC: ER 10:47
DX: S22.31XA Fracture of one rib, right side, initial encounter for closed fracture (principal); S29.012A Strain of muscle and tendon of back wall of thorax, initial encounter; E87.6 Hypokalemia; I10 Essential (primary) hypertension; J45.909 Unspecified asthma, uncomplicated; M79.7 Fibromyalgia; R00.1 Bradycardia, unspecified; Z88.0 Allergy status to penicillin; Z88.2 Allergy status to sulfonamides; Z91.040 Latex allergy status; Z88.6 Allergy status to analgesic agent; Z88.8 Allergy status to other drugs, medicaments and biological substances; Z60.2 Problems related to living alone; Z79.899 Other long term (current) drug therapy; X58.XXXA Exposure to other specified factors, initial encounter; Y93.89 Activity, other specified; Y92.89 Other specified places as the place of occurrence of the external cause; Y99.8 Other external cause status
CPT/HCPCS: 36415; 71045-TC; 71100-TC; 80048-TC; 80076-TC; 84484-TC; 85025-TC

== ENCOUNTER 2021-02-05 10:32 | Inpatient (IN) | payer MEDICARE, OTHER ==
[~2021-02-05] VITALS: Ht 167.6 cm; Wt 83.9 kg
[~2021-02-05 10:32] MED LIST changes: -AMIO200T4 PO; +AMIO200T5 PO; -LORA-588 PO; +LORA-672 PO
[2021-02-05] MEDS ORDERED: IV NS 0.9% 1,000 ML IV ONE (11:00)
[2021-02-05] MEDS ORDERED: ACETAMINOPHEN 325 MG TABLET PO ONE (11:00)
--- NOTE | 2021-02-05 11:00 | NUR ---
Patient brian from home, caregiver found her on the floor sometime last night. On room air, breathing evenly and unlabored. Connected to the monitor and pulse ox. Kept comfortable, will continue to monitor accordingly.
[2021-02-05] MEDS ORDERED: ACETAMINOPHEN 325 MG TABLET ONE (11:01)
[2021-02-05] MEDS ORDERED: ASPI-1420 PO (11:21)
[2021-02-05] MEDS ORDERED: HYDR-3980 PO (11:21)
[2021-02-05 11:28] LABS: BASOPHILS # (AUTO) 0.2 K/uL (0.0-0.2); BASOPHILS % (AUTO) 1.1 % (0.0-2.0); EOSINOPHILS % (AUTO) 0.1 % (0.0-6.0); HEMATOCRIT 26 % (33-45); HEMOGLOBIN 7.9 g/dL (11.5-14.8); LYMPHOCYTES # (AUTO) 0.5 K/uL (0.8-4.8); MEAN CORPUSCULAR HGB CONC 31 g/dl (31.0-36.0); MEAN CORPUSCULAR VOLUME 91 fL (82-100); MONOCYTES # (AUTO) 0.7 K/uL (0.1-1.30); MONOCYTES % (AUTO) 4.4 % (2.0-12.0); NEUTROPHILS # (AUTO) 15.1 K/uL (1.8-8.9); NEUTROPHILS % (AUTO) 91.4 % (43.0-81.0); PLATELET COUNT (AUTO) 276 K/uL (150-450); RED BLOOD CELL COUNT(AUTO) 2.85 MIL/uL (4.0-5.2); WHITE BLOOD COUNT (AUTO) 16.5 K/uL (4.3-11.0)
[2021-02-05 11:37] LABS: BILIRUBIN,URINE SMALL (NEGATIVE); CALCIUM, SERUM 8.2 mg/dL (8.5-10.1); CARBON DIOXIDE 28 mmol/L (21-32); CHLORIDE 96 mmol/L (98-107); COLOR,URINE DARK YELLOW (YELLOW); CREATININE 2.6 mg/dL (0.6-1.3); GLUCOSE 92 mg/dL (74-106); LEUKOCYTE ESTERASE ,URINE Trace (NEGATIVE); NITRITE, URINE Negative (NEGATIVE); PH,URINE 5.5 (5.0-8.0); POTASSIUM 3.5 mmol/L (3.5-5.1); PROTEIN,URINE Trace mg/dl (NEGATIVE); SODIUM SERUM 134 mmol/L (136-145); UGLUCOSE Negative (NEGATIVE); UREA NITROGEN, BLOOD 38 mg/dL (7-18)
[2021-02-05 11:43] LABS: ALANINE AMINOTRANSFERASE < 6 U/L (12-78); ALKALINE PHOSPHATASE 143 U/L (46-116); ASPARTATE AMINOTRANSFERASE 23 U/L (15-37); BILIRUBIN,DIRECT 1.7 mg/dL (0.0-0.2); BILIRUBIN,TOTAL 2.9 mg/dL (0.2-1.0); TOTAL PROTEIN, SERUM 7.1 g/dL (6.4-8.2)
[2021-02-05 11:44] LABS: ALBUMIN 1.4 g/dL (3.4-5.0)
[2021-02-05 11:48] LABS: RBC,URINE 0-2 /HPF (0-2)
[2021-02-05 11:49] LABS: BACTERIA,URINE Moderate /HPF (None Seen); SQUAMOUS EPITHELIAL CELL,UR Moderate /HPF (None Seen); URINE AMORPHOUS URATE Moderate /HPF (None Seen)
--- NOTE | 2021-02-05 11:58 | NUR ---
covid swab collected and sent to lab.
--- NOTE | 2021-02-05 12:10 | NUR ---
MOVE SHEET SUBMITTED AND CALLED FOR BED.
[2021-02-05 13:12] LABS: CREATINE KINASE, TOTAL 38 U/L (26-192)
[2021-02-05] MEDS ORDERED: ONDANSETRON HCL/PF 4 MG/2 ML VIAL ONE (13:20)
[2021-02-05] MEDS ORDERED: MORPHINE SULFATE INJ 2 MG/ML DISP.SYRIN ONE (13:21)
[2021-02-05] MEDS ORDERED: ONDANSETRON HCL/PF 4 MG/2 ML VIAL IV ONE (13:30)
[2021-02-05] MEDS ORDERED: MORPHINE SULFATE INJ 2 MG/ML DISP.SYRIN IV ONE (13:30)
--- NOTE | 2021-02-05 13:46 | NUR ---
ROOM 307-2
--- NOTE | 2021-02-05 13:53 | NUR ---
report given to Rylee MACEDO for ap.
[2021-02-05] MEDS ORDERED: AZITHROMYCIN 500 MG in IV D5W 250 ML IV ONE (14:30)
[2021-02-05] MEDS ORDERED: CEFTRIAXONE 1 G in IV D5W 50 ML IV ONE (14:30)
[2021-02-05] MEDS ORDERED: ONDANSETRON HCL/PF 4 MG/2 ML VIAL IVP PRN (15:30)
[2021-02-05] MEDS ORDERED: FLUTICASONE PROPIONATE 16 GM BOTTLE NS PRN (15:30)
[2021-02-05] MEDS ORDERED: ACETAMINOPHEN 325 MG TABLET PO PRN (15:30)
[2021-02-05] MEDS ORDERED: Z GUARD REMEDY 2 OZ OINT TP PRN (15:30)
[2021-02-05] MEDS ORDERED: MAGNESIUM HYDROXIDE 30 ML UDC PO PRN (15:30)
[2021-02-05] MEDS ORDERED: MAG HYDROX/AL HYDROX/SIMETH 30 ML UDC PO PRN (15:30)
--- NOTE | 2021-02-05 15:30 | NUR ---
AUTOMOBILE BODY CUSTOMIZERWOMEN SPECIALIST NOTE RECEIVED PATIENT FROM ER. PATIENT WAS BIB AMBULANCE DUE TO GROUND LEVEL FALL. STABLE FOR NOW, VITALS 91/53 HR 77, O2 97% TEMP 98.2. A/O X4. STABLE ON ROOM AIR - NO SOB NOTED. NO DISTRESS/DISCOMFORT NOTED. PATIENT STATES SHE IS SLIGHTLY AMBULATORY WITH A WALKER AROUND HER HOUSE, BUT NOT MUCH. BLE PITTING EDEMA. SMALL SCABBED OVER ABRASION ON RIGHT FOREARM/WRIST - WRAPPED IN GAUZE AND KERLIX. SKIN INTACT OTHERWISE. IV ACCESS TO LEFT AC #18 - INTACT AND PATENT. SAFETY MEASURES IN PLACE. CALL LIGHT WITHIN REACH. WILL CONTINUE TO MONITOR.
--- NOTE | 2021-02-05 15:32 | NUR ---
wheeled patient via gurney accompanied by RN adn emt in no distress. RN assigned at bedside to assume care.
[2021-02-05 16:00] VITALS: BP 91/53
[2021-02-05] MEDS ORDERED: ALPRAZOLAM 0.5 MG TABLET PO PRN (16:00)
[2021-02-05] MEDS: HYDROCODONE/APAP 10/325MG TABLET PO PRN (16:58)
--- NOTE | 2021-02-05 18:36 | NUR ---
DIRECTOR OF CATH LAB CLOSING NOTE PATIENT CURRENTLY LYING IN BED, RESTING COMFORTABLY. A/O X4. STABLE ON ROOM AIR - NO SOB NOTED. NO DISTRESS/DISCOMFORT NOTED. BLE PITTING EDEMA. SMALL SCABBED OVER ABRASION ON RIGHT FOREARM/WRIST - WRAPPED IN GAUZE AND KERLIX. SKIN INTACT OTHERWISE. IV ACCESS TO LEFT AC #18 - INTACT AND PATENT - RUNNING NS @ 75ML/HR. SAFETY MEASURES IN PLACE. CALL LIGHT WITHIN REACH. WILL ENDORSE TO DIRECT SELLING COUNSELOR NURSE FOR REGULO.
[2021-02-05] MEDS: IV NS 0.9% 1,000 ML IV PRN (18:37)
--- NOTE | 2021-02-05 19:39 | NUR ---
CONSTRUCTION CONTRACTOR OPENING NOTES PATIENT IS CURRENTLY SLEEPING IN BED. PATIENT'S ALERT AND ORIENTED X4. PATIENT'S ON ROOM AIR WITH NO RESPIRATORY DISTRESS NOTED. PATIENT'S CONNECTED TO A TELE MONITOR WITH NO CARDIAC DISTRESS NOTED. IV ACCESS NOTED ON LAC#18, WHICH IS INTACT, PATENT, AND FLUSHING WELL. PATIENT'S IN NO ACUTE DISTRESS AT THIS TIME. SAFETY MEASURES IN PLACE: BED LOCKED, BED ALARM ON, SIDE RAILS UPX3, & CALL LIGHT WITHIN REACH OF THE PATIENT. WILL CONTINUE TO MONITOR THE PATIENT.
[2021-02-05 20:38] VITALS: BP 90/60
--- NOTE | 2021-02-06 00:03 | NUR ---
auto vinyl top installer Notes Patient's BP at this time is 101/57. Will continue to monitor the patient.
[2021-02-06 06:45] LABS: BASOPHILS % (AUTO) 0.1 % (0.0-2.0); EOSINOPHILS % (AUTO) 0.2 % (0.0-6.0); HEMATOCRIT 23 % (33-45); HEMOGLOBIN 7.1 g/dL (11.5-14.8); LYMPHOCYTES # (AUTO) 0.8 K/uL (0.8-4.8); LYMPHOCYTES % (AUTO) 5.6 % (20.0-44.0); MEAN CORPUSCULAR HGB CONC 32 g/dl (31.0-36.0); MEAN CORPUSCULAR VOLUME 91 fL (82-100); MONOCYTES # (AUTO) 0.7 K/uL (0.1-1.30); MONOCYTES % (AUTO) 5.1 % (2.0-12.0); NEUTROPHILS # (AUTO) 12.6 K/uL (1.8-8.9); PLATELET COUNT (AUTO) 231 K/uL (150-450); RED BLOOD CELL COUNT(AUTO) 2.48 MIL/uL (4.0-5.2); WHITE BLOOD COUNT (AUTO) 14.1 K/uL (4.3-11.0)
[2021-02-06] MEDS: HYDROCODONE/APAP 10/325MG TABLET PO PRN ×3 (06:46→22:41)
[2021-02-06 07:01] LABS: ALKALINE PHOSPHATASE 136 U/L (46-116); ASPARTATE AMINOTRANSFERASE 20 U/L (15-37); BILIRUBIN,DIRECT 1.5 mg/dL (0.0-0.2); BILIRUBIN,TOTAL 2.3 mg/dL (0.2-1.0); CALCIUM, SERUM 7.7 mg/dL (8.5-10.1); CARBON DIOXIDE 28 mmol/L (21-32); CHLORIDE 97 mmol/L (98-107); CREATININE 2.4 mg/dL (0.6-1.3); GLUCOSE 77 mg/dL (74-106); MAGNESIUM 1.9 mg/dL (1.8-2.4); PHOSPHORUS 3.9 mg/dL (2.5-4.9); POTASSIUM 3.7 mmol/L (3.5-5.1); SODIUM SERUM 133 mmol/L (136-145); TOTAL PROTEIN, SERUM 6.4 g/dL (6.4-8.2); UREA NITROGEN, BLOOD 40 mg/dL (7-18)
[2021-02-06 07:12] LABS: ALANINE AMINOTRANSFERASE 6 U/L (12-78)
[2021-02-06 07:30] LABS: ALBUMIN 1.3 g/dL (3.4-5.0)
[2021-02-06 08:00] VITALS: BP 108/64
[2021-02-06] MEDS: METOPROLOL SUCCINATE 25 MG TAB.SR.24H PO SCH (09:00)
--- NOTE | 2021-02-06 09:36 | NUR ---
WOUND CARE CONSULT: PT ADAMANTLY REFUSED TO BE TURNED FOR FULL SKIN ASSESSMENT. RT ARM NOTED TO HAVE DISCOLORATION AND CLOSED SKIN TEAR, PRESENT ON ADMISSION. RECOMMENDATIONS MADE FOR SKIN PROTECTION. DISCUSSED WITH NURSING STAFF. PT NOTED TO BE ANGRY AND IRRITABLE WITH STAFF. MD IN AGREEMENT WITH PLAN OF CARE.
[2021-02-06] MEDS: ASPIRIN EC 81 MG TABLET.DR PO SCH (09:51)
[2021-02-06] MEDS: LORATADINE 10 MG TABLET PO SCH (09:52)
[2021-02-06] MEDS: FAMOTIDINE (20 MG) 20 MG TABLET PO SCH (09:52)
[2021-02-06] MEDS: IV NS 0.9% 1,000 ML IV PRN (09:54)
[2021-02-06 12:00] VITALS: BP 106/71
--- NOTE | 2021-02-06 12:15 | NUR ---
SS consult SS consult requested for pt who lives alone and fell at home. Pt is a 80-year-old, female. SW met with pt at her bedside in the med-surg unit. Pt was alert and oriented x4. Pt presented with an irritable mood and flat affect. Pt appeared well-groomed and appropriately dressed. Pts caregiver, Liss Fuller, , was at the bedside. Per chart, pt was brought to the hospital by ambulance from home on 02/05/21, after the pt was found on the floor by her caregiver. Pt currently lives at [address] [place] [address]; [phone]. Pt stated that her caregiver at the bedside, Liss, cares for her daily. Pt does not currently have a 24-hour caregiver and lives at home alone. Pt currently uses a walker or scooter to ambulate. Pt stated that she requires assistance with her ADLs from her caregiver. Pt reported that she regularly visits her PCP and her administrative sales assistant, Mitch Kiran MD, . Pt stated that her administrative sales assistant has arranged for hospice care at home at the time of D/C and instructed SW to call the pts administrative sales assistant for further information. Pt denied hx of substance abuse. Pt denied hx of mental illness. Pt denied SI/HI. SW offered the pt senior resources. Pt accepted the resources and thanked SW. Pt plans to return to her prior living arrangement at her private residence with hospice care at home. Pt will continue to be under the care of her caregiver, Liss. Per pts caregiver, Liss, pt will be provided transportation from the hospital by the hospice service. PLAN: Pt plans to return to her prior living arrangement at home, with hospice care. SW will contact pts administrative sales assistant to obtain further information on hospice care. SS will remain available as needed. RESOURCES: ABUSE PREVENTION: Elder Abuse Hotline (08/12) Adult Protective Services Hotline Long-Term Care [facility] Area On Aging (Hotline) ADULT DAY HEALTH CARE CARE CENTERS: Private pay or [facility] funded adult day care [facility] , [facility] Services , [facility] , [facility] , [facility] Day Health Care , [facility] , [facility] , [facility] , [facility] ASSOCIATIONS: AARP www.aarp.org ALS Association (837) 650-3907818) 865-8067 (ask for Yesi) www.als.org Chilean Diabetes Association www.diabetes.org Chilean Heart Association www.heart.org Chilean Lung Association www.lungusa.org Chilean Parkinson Disease Association www.apdaparkinson.org Chilean [place] , www.redcross.org Arthritis Foundation www.arthritis.org Crohns & Colitis Foundation of [place]an www.ccfa.org/chapters/anatoliy National Multiple Sclerosis Society www.nationalmssociety.org Myasthenia Gravis Foundation www.myasthenia-ca.org National Stroke Association www.stroke.org CONSERVATORSHIP & GUARDIANSHIP: AARP Neisha Flores Legal Services Center for Health Care Rights [facility]are Information and Referral Agricultural Education Instructor [facility]: [facility] Bar Referral Service [facility] Legal Services Office of the Public Guardian [place] GRIEF AND BEREAVEMENT RESOURCES: [facility] [place] , [facility] THE HOPE Connection , [facility] , [place] HELP AT HOME CAREGIVER SUPPORT: In Home Support Services (Must have Medi-Bib to be eligible) *Ask for a list of agencies that provide services to assist with care in the home. Local Senior Centers also have listings of care providers. HOME SAFETY MODIFICATIONS AND EQUIPMENT: Senior centers have additional referrals. [place] [employer] and Community Investment Dept. Handyworker Program (low income) or Visit http://hcidla.[facility].org/vya-oqoqkr-fv for more information National Seating and Mobility and/or ; Forever Active www.foreveractivemed.CSMG Stay Home Safe www.Stayhomesafe.com LIFE ALERT RESPONSE SYSTEM: [employer] Lifeline Services 467-419-8945 www. I-CAN Systems Life Alert 315-475-0112 www.lifeManipal Ac[place]art.CSMG Life Station 847-082-0286 www.Collisionableation.com Safe Return 495-273-7205 www.alz.or/safereturn Cell Phones for Seniors www.99 Fahrenheit MEALS AND FOOD PROGRAMS: [place] Meals on Wheels [phone] [place] Meals on Wheels [phone] [facility] [phone] [place] to the Homebound [phone] [place] to the Homebound [phone] [facility] to the Homebound [phone] [facility] to the Homebound [phone] Miguel Ramos [phone] [facility] [phone] ONE Generation [phone] [facility] [phone] [facility] [phone] Meals on Wheels [phone] For all ages: $6.85/ meal w side. Delivered M-F from 10 am-1pm. Application and payment is done over the phone. Frozen meals available for weekends. [facility] Food [facility] [phone] [facility] Landscape Horticulture Instructor [phone] [facility] [phone] [facility]- Brown bag lunches [phone] [facility] [phone] MEAL/GROCERY DELIVERY PROGRAMS: [facility] Gourmet Meals [phone]- [facility] [phone]- [facility] Magic Kitchen [phone] Moms Meals [phone] (ask Shaw for Discount Select grocery stores may provide delivery. MEDICAL INSURANCE SUPPORT SERVICES: Center for Health Care Rights [phone] Health Insurance Counseling/Advocacy Programs (HICAP)-Must have Medicare. Offers counseling for Medi-Bib eligibility [phone] Department of Public Landscape Horticulture Instructor [phone] www.[facility].ca.gov Medicare 218-758-4950 www.socialsecurity.org Social Security [phone] SENIOR ACTIVITY PROGRAMS: *Contact a local senior center, adult school, recreation facility or community college for education, fitness, recreation, and social programs. Aquatic Therapy and Adapted Exercise programs through [facility] [phone] Encore at [facility] [phone] www.[facility]/encore U- Senior Friends [phone] [place] [facility] [phone] www.oasisnet.org Suddenly 65 www.vzbfscow25.com SENIOR CENTERS: [facility] [phone] [facility] Center[facility] [phone] [facility] [phone] [facility] [phone] [facility] [phone] [facility] [phone] [facility] [phone] [facility] [phone] [facility] [phone] [facility] [phone] [facility] [phone] [facility] [phone] [facility] [phone] TRANSPORTATION: Local [facility] Centers may have applications for transportation programs and additional resources. ACCESS Services [phone] Transportation for seniors and disabled persons 7 days a week requiring 254 hr. advance reservation. Must apply and register for program to be eligible. Rapport [phone] or [phone] Transportation for seniors and persons with ADA card/metro disabled card in the [facility]. M-F only. Must register for services. ONE GENERATION [phone] Serves 65 years + in conjunction with Reval.com program. Must be registered with both programs. A to B Transport [phone] Provides wheelchair/gurney van service. TRANSPORTATION CONTINUED: Adult Medical Transport [phone] Accepts Medi-bib with prior authorization. Care Van [phone] Provides wheelchair Transport. [facility] Wide Transportation [phone] Provides gurney service [facility] [phone] Gurney Transport. [facility] Town Transportation [phone] wheelchair & gurney transport D Transportation [phone] wheelchair & gurney transport [place] Non-Emergency Transport [phone] wheelchair & gurney transport [facility] Living [place] [phone] (Short Term Transportation primarily for adults with disabilities on social security income. Nominal fee may apply and a reservation is required.) [employer] [phone] or [phone] [place] [employer] [phone] [place] [address] Services -[phone] For additional programs & services VETERANS RESOURCES: Submissions for Aid and Attendance should be done directly to Federal VA office located at: [address] [facility] [phone] National Caregiver Support Line [phone] [facility] Field Office [phone] [place] Department of [place] Affairs [phone] Pension Information [phone]
--- NOTE | 2021-02-06 12:20 | NUR ---
SS note SW contacted pts heel sander, Mitch Kiran MD and was notified that the pt would be provided hospice care at home by [facility] (ph: [phone]).
[2021-02-06 17:00] VITALS: BP 107/51
[2021-02-06 20:00] VITALS: BP 117/67
--- NOTE | 2021-02-06 20:00 | NUR ---
Patient is A&Ox2. VSS. Patient reports pain in abdomen -ascites is clearly present. educated pt that norco will be given when it is due but suggested diversional activities in the meantime and position side lying. No other signs of distress. BLE edema 2+. legs elevated in bed.
--- NOTE | 2021-02-06 20:39 | NUR ---
patient continues to refuse labs x3
[2021-02-06] MEDS ORDERED: KETOROLAC TROMETHAMINE INJ 30 MG/ML VIAL IV ONE (23:30)
--- NOTE | 2021-02-06 23:31 | NUR ---
patient vomited 15 minutes after admin of [place] still in 10/10 pain. MD ordered toradol 15mg x1 now IV.
[2021-02-07] VITALS: BP 109/65
--- NOTE | 2021-02-07 00:02 | NUR ---
Patient refusing catheterization for urine sample and unable to urinate on bedpan at this time. Patient also trying to refuse at first to be changed d/t vomiting on bed linens. But agreeable once both nurse and MOUNT LOADER reassured her it would be efficient and trying to cause the least amount of pain possible and is needed to keep clean and prevent skin breakdown.
[2021-02-07] MEDS: IV NS 0.9% 1,000 ML IV PRN (03:16)
[2021-02-07 05:00] VITALS: BP 137/99
--- NOTE | 2021-02-07 05:28 | NUR ---
patient is now stating that she cannot use bedpan but that she uses bedside commode with 2 person assist. but refusing to get up to use commode at this time -said she would later when she wakes up more.
[2021-02-07 05:57] LABS: HEMATOCRIT 24 % (33-45); HEMOGLOBIN 7.3 g/dL (11.5-14.8); MEAN CORPUSCULAR VOLUME 93 fL (82-100); RED BLOOD CELL COUNT(AUTO) 2.54 MIL/uL (4.0-5.2); WHITE BLOOD COUNT (AUTO) 11.8 K/uL (4.3-11.0)
[2021-02-07 05:58] LABS: BASOPHILS % (AUTO) 0.3 % (0.0-2.0); EOSINOPHILS % (AUTO) 0.2 % (0.0-6.0); LYMPHOCYTES # (AUTO) 0.7 K/uL (0.8-4.8); LYMPHOCYTES % (AUTO) 5.8 % (20.0-44.0); MEAN CORPUSCULAR HGB CONC 31 g/dl (31.0-36.0); MONOCYTES # (AUTO) 0.6 K/uL (0.1-1.30); MONOCYTES % (AUTO) 5.2 % (2.0-12.0); NEUTROPHILS # (AUTO) 10.4 K/uL (1.8-8.9); NEUTROPHILS % (AUTO) 88.5 % (43.0-81.0); PLATELET COUNT (AUTO) 181 K/uL (150-450)
[2021-02-07 06:11] LABS: ALANINE AMINOTRANSFERASE 8 U/L (12-78); ALKALINE PHOSPHATASE 151 U/L (46-116); ASPARTATE AMINOTRANSFERASE 31 U/L (15-37); BILIRUBIN,TOTAL 2.5 mg/dL (0.2-1.0); CALCIUM, SERUM 7.8 mg/dL (8.5-10.1); CARBON DIOXIDE 26 mmol/L (21-32); CHLORIDE 97 mmol/L (98-107); CREATININE 2.5 mg/dL (0.6-1.3); GLUCOSE 81 mg/dL (74-106); MAGNESIUM 2.2 mg/dL (1.8-2.4); PHOSPHORUS 4.5 mg/dL (2.5-4.9); POTASSIUM 4.1 mmol/L (3.5-5.1); SODIUM SERUM 132 mmol/L (136-145); TOTAL PROTEIN, SERUM 6.7 g/dL (6.4-8.2); UREA NITROGEN, BLOOD 46 mg/dL (7-18)
--- NOTE | 2021-02-07 06:11 | NUR ---
Patient A&Ox2 at bedtime but A&Ox3 in the morning. Cooperative but also uncooperative at times refusing care. Pain to abdomen relieved by PRN toradol. No further episodes of emesis after vomiting norco. On the monitor shows controlled Afib 70s to low 80s. LAC #18G patent and infusing NS at 75cc/hr.
[2021-02-07 06:14] LABS: ALBUMIN 1.3 g/dL (3.4-5.0)
--- NOTE | 2021-02-07 07:26 | NUR ---
OPTIC FIBRE DRAWER OPENING NOTES PATIENT RECEIVED ASLEEP IN BED, EASILY AWAKENS TO STIMULI. HOB ELEVATED. PT IS A/O X2-3. ABLE TO MAKE NEEDS KNOWN, NO C/O PAIN OR ANY DISCOMFORTS AT THIS TIME. ON ROOM AIR, BREATHING EVEN AND UNLABORED. ON TELE- MONITOR WITH CURRENT READING OF A-FIB CONTROLLED, HR B/W 75-85, NO C/O CARDIAC DISTRESS VOICED AT THIS TIME. IV ACCESS ON LAC G#18 INTACT AND PATENT, IVF OF NS @ 75ML/HR INFUSING WELL. FALL AND SAFETY MEASURES IN PLACE: BED IN LOWEST LOCKED POSITION, SIDE RAILS UP X2 & CALL LIGHT WITHIN EASY REACH OF THE PATIENT. WILL CONTINUE TO MONITOR PT ACCORDINGLY.
[2021-02-07 08:00] VITALS: BP 92/51
[2021-02-07 09:00] VITALS: BP 92/51
[2021-02-07] MEDS: METOPROLOL SUCCINATE 25 MG TAB.SR.24H PO SCH (09:00)
[2021-02-07] MEDS ORDERED: CEPH500C2 PO (09:14)
[2021-02-07] MEDS: FAMOTIDINE (20 MG) 20 MG TABLET PO SCH (09:24)
[2021-02-07] MEDS: LORATADINE 10 MG TABLET PO SCH (09:24)
[2021-02-07] MEDS: ASPIRIN EC 81 MG TABLET.DR PO SCH (09:24)
--- NOTE | 2021-02-07 18:47 | NUR ---
MS RN OPENING NOTES PATIENT IN BED AWAKE AT THIS TIME. A/O X3. ABLE TO MAKE NEEDS KNOWN. ON ROOM AIR, BREATHING EVEN AND UNLABORED. IV ACCESS ON LAC G#18 INTACT AND PATENT, IVF OF NS @ 75ML/HR INFUSING WELL. ALL NEEDS AND CARE ATTENDED WELL FALL AND SAFETY MEASURES IN PLACE: BED IN LOWEST LOCKED POSITION, SIDE RAILS UP X2 & CALL LIGHT WITHIN EASY REACH OF THE PATIENT. [facility]ED AND REPORT GIVEN EARLIER TO HELLEN ROSAS. HOME MEDS COLLECTED FROM PHARMACY. WILL ENDORSE TO HAND BANDER RN.
--- NOTE | 2021-02-07 19:30 | NUR ---
Patient picked up by 2 hammerer at 1919. Patient A&Ox3 in stable condition at discharge. Reports no pain at rest but when she is repositioned her stomach hurts her a little r/t ascites. VSS prior to d/c. All paperwork given to hammerer. Handed over all belongings including cell phone. Patient going to [facility]. Report given to rehab by AM nurse. Patient taken at 1924.
== END 2021-02-07 19:25 | DRG 689 ==
LOC: ER 10:50 → TELE 14:37 → MED 02-07 12:53
PROVIDERS: ADMIT Internal Medicine; ATTEND Internal Medicine
DX: N39.0 Urinary tract infection, site not specified (principal); G93.41 Metabolic encephalopathy; J90 Pleural effusion, not elsewhere classified; J98.11 Atelectasis; R18.8 Other ascites; E87.1 Hypo-osmolality and hyponatremia; D68.9 Coagulation defect, unspecified; E46 Unspecified protein-calorie malnutrition; K74.60 Unspecified cirrhosis of liver; M79.7 Fibromyalgia; D64.9 Anemia, unspecified; Z85.828 Personal history of other malignant neoplasm of skin; M19.90 Unspecified osteoarthritis, unspecified site; I25.10 Atherosclerotic heart disease of native coronary artery without angina pectoris; E86.0 Dehydration; E88.09 Other disorders of plasma-protein metabolism, not elsewhere classified; Z20.822 Contact with and (suspected) exposure to COVID-19; E83.9 Disorder of mineral metabolism, unspecified; W18.30XA Fall on same level, unspecified, initial encounter; Y92.009 Unspecified place in unspecified non-institutional (private) residence as the place of occurrence of the external cause; S50.11XA Contusion of right forearm, initial encounter; G89.4 Chronic pain syndrome; Z79.891 Long term (current) use of opiate analgesic; J45.909 Unspecified asthma, uncomplicated; Z68.29 Body mass index [BMI] 29.0-29.9, adult; K57.30 Diverticulosis of large intestine without perforation or abscess without bleeding; I12.9 Hypertensive chronic kidney disease with stage 1 through stage 4 chronic kidney disease, or unspecified chronic kidney disease; N18.30 Chronic kidney disease, stage 3 unspecified
CPT/HCPCS: 36415; 71045-TC; 71250-TC; 72170-TC; 73110; 80048-TC; 80053-TC; 80076-TC; 81001; 82140-TC; 82550-TC; 83735-TC; 84100-TC; 84484-TC; 85025-TC; 85730-TC; 86850-TC; 87040-TC; 87081-TC; 87086-TC; 93307-TC; 97112-TC; 97530-TC; C9803; G0378; G0480; J0456; J0696; J1885; J2270; J2405; J7030; J7060

== ENCOUNTER 2021-02-11 01:09 | Emergency (ER) | payer MEDICARE, OTHER ==
[2021-02-11] VITALS (22 sets, daily range): BP systolic 40–164; BP diastolic 13–85
[~2021-02-11] VITALS: Ht 162.6 cm; Wt 88.5 kg
[~2021-02-11 01:09] MED LIST changes: -AMIO200T5 PO; -APIX5TAB PO; +ASPI-1420 PO; -BENZ-13 PO; +CEPH500C2 PO; -CLOT15CR35 TP; -DIPH1TAB PO; -HYDR-3974 PO; +HYDR-3980 PO; -Hydrocodone/Apap 10/325MG PO
--- NOTE | 2021-02-11 01:09 | NUR ---
JCAOB CELESTIN FROM [facility] FOR ACUTE MENTAL STATUS CHANGE. PT BASELINE A&OX2-3 PER FACILITY ONLY RESPONSIVE TO PAINFUL STIMULI X20 MINS PRIOR TO ARRIVAL. UPON EMS ARRIVAL PT HYPOXIC, HYPOTENSIVE, AND UNRESPONIVE. PT WAS PULSELESS UPON ARRIVAL WITH NO SPONTANEOUS RESPIRATIONS. COMPRESSIONS AND ACLS PROTOCOL INITIATED IMMEDIATELY.
--- NOTE | 2021-02-11 01:21 | NUR ---
0113 START OF CODE/COMPRESSIONS 0115 INTUBATION 0116 1 MG EPI 0118 PULSE CHECK PEA 0119 ROSC
[2021-02-11] MEDS ORDERED: PANTOPRAZOLE 40 MG VIAL IV ONE (01:30)
[2021-02-11] MEDS ORDERED: ONDANSETRON HCL/PF 4 MG/2 ML VIAL IVP ONE (01:30)
[2021-02-11] MEDS ORDERED: IV NS 0.9% 1,000 ML BAG IV ONE ×2 (01:30→03:30)
--- NOTE | 2021-02-11 01:34 | NUR ---
RT pt placed on vent post code. pt intubated, ett size 7.5 at 22 @ upper lip. vent settings: AC 20 500 100% +5. brown secretions suctioned via ett. lung sounds clear/diminished throughout. vent plugged in to red outlet. ambu bag at bedside. alarms on and audible. abg to follow. will continue to monitor.
[2021-02-11] MEDS ORDERED: ONDANSETRON HCL/PF 4 MG/2 ML VIAL ONE (01:37)
[2021-02-11] MEDS ORDERED: PANTOPRAZOLE 40 MG VIAL ONE (01:37)
[2021-02-11] MEDS ORDERED: OCTREOTIDE 500 MCG/ML VIAL ONE (01:38)
[2021-02-11] MEDS ORDERED: OCTREOTIDE 100 MCG/ML VIAL ONE ×2 (01:38→01:47)
[2021-02-11] MEDS ORDERED: OCTREOTIDE 1,250 MCG in IV NS 0.9% 250 ML IV ONE (02:00)
[2021-02-11] MEDS ORDERED: DEXTROSE 50%-WATER 50 ML DISP.SYRIN IV ONE ×3 (02:00→03:30)
[2021-02-11] MEDS ORDERED: OCTREOTIDE 50 MCG/ML AMPUL IV ONE (02:00)
[2021-02-11 02:51] LABS: BASOPHILS % (AUTO) 0.1 % (0.0-2.0); EOSINOPHILS % (AUTO) 0.2 % (0.0-6.0); HEMATOCRIT 26 % (33-45); HEMOGLOBIN 7.3 g/dL (11.5-14.8); LYMPHOCYTES # (AUTO) 0.7 K/uL (0.8-4.8); LYMPHOCYTES % (AUTO) 2.4 % (20.0-44.0); MEAN CORPUSCULAR HGB CONC 28 g/dl (31.0-36.0); MEAN CORPUSCULAR VOLUME 102 fL (82-100); MONOCYTES # (AUTO) 0.6 K/uL (0.1-1.30); NEUTROPHILS # (AUTO) 26.7 K/uL (1.8-8.9); NEUTROPHILS % (AUTO) 95.3 % (43.0-81.0); PLATELET COUNT (AUTO) 183 K/uL (150-450); RED BLOOD CELL COUNT(AUTO) 2.56 MIL/uL (4.0-5.2)
[2021-02-11 02:58] LABS: CHLORIDE 92 mmol/L (98-107); CREATININE 4.3 mg/dL (0.6-1.3); GLUCOSE 92 mg/dL (74-106); SODIUM SERUM 128 mmol/L (136-145); UREA NITROGEN, BLOOD 66 mg/dL (7-18)
[2021-02-11 03:12] LABS: BILIRUBIN,URINE MODERATE (NEGATIVE); COLOR,URINE DARK YELLOW (YELLOW); LEUKOCYTE ESTERASE ,URINE Trace (NEGATIVE); NITRITE, URINE Negative (NEGATIVE); PROTEIN,URINE 100 mg/dl (NEGATIVE); UGLUCOSE Negative (NEGATIVE); UROBILINOGEN,URINE 0.2 EU/dL (0.2)
[2021-02-11 03:12] LABS: ALANINE AMINOTRANSFERASE 99 U/L (12-78); ALKALINE PHOSPHATASE 180 U/L (46-116); ASPARTATE AMINOTRANSFERASE 1253 U/L (15-37); BILIRUBIN,DIRECT 2.1 mg/dL (0.0-0.2); BILIRUBIN,TOTAL 3.2 mg/dL (0.2-1.0)
[2021-02-11] MEDS ORDERED: DEXTROSE 50%-WATER 50 ML DISP.SYRIN ONE (03:12)
[2021-02-11] MEDS ORDERED: INSULIN REGULAR, HUMAN 100 UNIT/ML 10 ML VIAL ONE (03:12)
[2021-02-11 03:16] LABS: CARBON DIOXIDE 8 mmol/L (21-32); POTASSIUM 6.3 mmol/L (3.5-5.1)
--- NOTE | 2021-02-11 03:16 | NUR ---
ABG DONE BY RT
[2021-02-11 03:20] LABS: ABG BASE EXCESS -19.7 mmol/L; ABG OXYGEN SATURATION 75.5 % (92.0-98.5); ABG PCO2 34.1 mmHg (35.0-45.0); ABG PH 7.053 (7.350-7.450); ABG PO2 58.4 mmHg (75.0-100.0); AaDO2 620.5 mmHg; COHb 0.6 % (0.5-1.5); MetHb 0.6 % (0.0-1.5); O2Hb 74.6 % (94.0-97.0); SITE, ABG Right Brachial; VENT MODE, BG AC 20 500 100% +5
[2021-02-11] MEDS ORDERED: SODIUM BICARBONATE SYR 50 MEQ/50 ML DISP.SYRIN ONE (03:24)
[2021-02-11] MEDS ORDERED: ALBUMIN 25% 12.5 GM/50 ML BOTTLE IV ONE (03:30)
[2021-02-11] MEDS ORDERED: VANCOMYCIN 1 GM in IV D5W 250 ML IV ONE (03:30)
[2021-02-11] MEDS ORDERED: INSULIN REGULAR, HUMAN 100 UNIT/ML 10 ML VIAL IV ONE (03:30)
[2021-02-11] MEDS ORDERED: SODIUM BICARBONATE SYR 50 MEQ/50 ML DISP.SYRIN IV ONE ×2 (03:30)
[2021-02-11] MEDS ORDERED: AZTREONAM 2 G in IV NS 0.9% 100 ML IV ONE (03:30)
[2021-02-11] MEDS ORDERED: ALBUMIN 25% 50 ML IV ONE ×2 (03:37→03:39)
[2021-02-11] MEDS ORDERED: PANTOPRAZOLE 40 MG VIAL IV SCH ×2 (04:00→09:00)
[2021-02-11] MEDS ORDERED: ACETAMINOPHEN 650 MG/SUPP.RECT RC PRN (04:00)
[2021-02-11] MEDS ORDERED: Sodium Bicarbonate 150 MEQ in IV NS 0.9% 1,000 ML IV PRN (04:00)
--- NOTE | 2021-02-11 04:05 | NUR ---
PT ON INTUBATED AND VENT SETTINGS: PEAK 28 PMEAN 13 PEEP 4.2 I:E : 1: 1.4 VTE 514 PEEP 5.0 O2: 100% TV : 500
[2021-02-11] MEDS ORDERED: NOREPINEPHRINE 4 MG/4 ML AMPUL IV ONE (04:14)
[2021-02-11] MEDS: NOREPINEPHRINE 8 MG in IV NS 0.9% 250 ML IV PRN ×2 (04:25→08:30)
--- NOTE | 2021-02-11 04:26 | NUR ---
BP 42/16 LEVOPHED 0.1 MCG/KG/MIN STARTED
[2021-02-11] MEDS ORDERED: IV D5/ 0.9% NACL 1,000 ML IV PRN (04:30)
--- NOTE | 2021-02-11 04:32 | NUR ---
WAS ADVISED BY RN WALLACE AND RT THAT PT IS UNSTABLE TO HAVE CT HEAD AND ABDOMEN PELVIS AT THIS TIME. WILL ATEMPT LATER ON THIS MORNING WHEN PATIENT IS MORE STABLE, END OF REPORT
[2021-02-11] MEDS ORDERED: CEFEPIME 1 GM in IV D5W 50 ML IV SCH (05:00)
[2021-02-11] MEDS ORDERED: AZTREONAM 1 G VIAL ONE (05:09)
[2021-02-11] MEDS ORDERED: VANCOMYCIN 1 GM VIAL ONE (05:09)
--- NOTE | 2021-02-11 05:12 | NUR ---
[facility] CALLED AND [facility] IS READY
--- NOTE | 2021-02-11 05:47 | NUR ---
PATIENT TRANSFERRED UNDER ACLS, RT DURING TRANSPORT.
[2021-02-11] MEDS ORDERED: PROPOFOL 100 ML IV PRN (06:00)
[2021-02-11 06:09] LABS: BACTERIA,URINE Many /HPF (None Seen); SQUAMOUS EPITHELIAL CELL,UR Moderate /HPF (None Seen)
[2021-02-11 06:10] LABS: URINE AMORPHOUS URATE Many /HPF (None Seen)
[2021-02-11 06:25] LABS: BAND % (MANUAL) 7 % (0.0-5.0); LYMPHOCYTES % (MANUAL) 2 % (16-48); MONOCYTES % (MANUAL) 2 % (0-11.0); NEUTROPHILS % (MANUAL) 89 (42-76)
[2021-02-11] MEDS ORDERED: Sodium Bicarbonate 150 MEQ in IV D5W 1,000 ML IV PRN (06:30)
[2021-02-11] MEDS ORDERED: OCTREOTIDE 1,250 MCG in IV NS 0.9% 247.5 ML IV PRN (07:00)
--- NOTE | 2021-02-11 07:10 | NUR ---
CORROSION PREVENTION METAL SPRAYER NOTES RECEIVED PT SEDATED ON DIPRIVAN @10MCG/KG/MIN. INTUBATED. ETT 7.5 TOLERATING VENT SETTINGS WELL. BROOKS CATH IN PLACE. ON LEVO 0.6. BICARB @100ML/HR. JENY #20 INTACT, PATENT AND FLUSHED. FOR PICC LINE INSERTION. TO START VANCO AND SANDOSTATIN. SAFETY MEASURES IN PLACE. WILL CONTINUE TO MONITOR.
--- NOTE | 2021-02-11 08:03 | NUR ---
agricultural researcher. received the pt from er via tara. s/p code blue. no gag reflex. temperature is 94. notified zaira supervisor polishing for isa deleon. orally intubated. ett 7.7, tv 500, ac 20,fio2 100%, peep 5. sat 95%. monitor worker showing nsr. iv lt hand 20g. levo 0.04mcg/kg/min,pt is very unstable. pt has only one line working. notified ns supervisor polishing and trailer sections assembler account service associate sim, pt antibiotic pending. er not given, vancomycin started, endrose to day shift. waiting for picc line.
[2021-02-11 08:10] LABS: ABG BASE EXCESS -21.8 mmol/L; ABG OXYGEN SATURATION 99.6 % (92.0-98.5); ABG PCO2 30.8 mmHg (35.0-45.0); ABG PH 7.016 (7.350-7.450); ABG PO2 256.1 mmHg (75.0-100.0); AaDO2 426.1 mmHg; COHb 0.4 % (0.5-1.5); MetHb 0.8 % (0.0-1.5); O2Hb 98.4 % (94.0-97.0); SITE, ABG Right Brachial; VENT MODE, BG AC 20 500 +5 100%
[2021-02-11] MEDS ORDERED: VANCOMYCIN POST DIALYSIS 500MG IV PRN (08:30)
[2021-02-11] MEDS ORDERED: NOREPINEPHRINE 8 MG in IV NS 0.9% 242 ML IV PRN (08:30)
[2021-02-11] MEDS: PHENYLEPHRINE 50 MG in IV NS 0.9% 245 ML IV PRN ×2 (09:35→13:46)
[2021-02-11] MEDS: HYDROCORTISONE SOD SUCCINATE 100 MG/2 ML VIAL IV SCH ×2 (09:55→13:29)
[2021-02-11] MEDS ORDERED: NOREPINEPHRINE 32 MG in IV NS 0.9% 218 ML IV PRN (10:00)
--- NOTE | 2021-02-11 11:30 | NUR ---
PT NOT STABLE FOR CT HEAD/A/P WO PER RN ANA CRISTINA
--- NOTE | 2021-02-11 14:33 | NUR ---
RT PATIENT REMAINS ORALLY INTUBATED ON [facility] VENT WITH ORDERED SETTINGS. PATIENT PLACED ON 100% FIO2. PATIENT IN CRITICAL CONDITION. Addendum: 02/11/21 at 1436 by JOSE ZAVALA RT Amended: Links added.
--- NOTE | 2021-02-11 14:50 | NUR ---
RN NOTES PAGED DR. JIM REGARDING ORDERING ANOTHER PRESSOR. MD TALKED TO DR. BOLAÑOS AND DR. PECK AND DISCUSSED PT CONDITION. CHANGED CODE STATUS TO COMFORT MEASURES ONLY. AND GIVE MORPHNE IV PUSH 2MG Q2 PRN. ORDERS CARRIED OUT.
[2021-02-11] MEDS ORDERED: MORPHINE SULFATE INJ 2 MG/ML DISP.SYRIN IV PRN (15:30)
--- NOTE | 2021-02-11 17:45 | NUR ---
RT PER MD ORDER PATIENT WAS COMPASSIONATELY EXTUBATED. Addendum: 02/11/21 at 1759 by JOSE ZAVALA RT Amended: Links added.
--- NOTE | 2021-02-11 17:55 | NUR ---
RN NOTES PT ON COMFORT CARE. HR AT 0. NO PALPABLE PULSES. NO SPONTANEOUS RESPIRATION. ASYSTOLE ON MONITOR. VERIFIED BY 2 RNs. NURSING HEALTH AND SAFETY TECH MADE AWARE. POST MORTEM CARE DONE. PLACED IN BAG WITH CORRESPONDING LABELS. PRONOUNCED AT 1755.
--- NOTE | 2021-02-11 18:53 | NUR ---
RN NOTES CAREGIVER NOTIFIED THAT THE PT . [facility] [employer] .
--- NOTE | 2021-02-11 19:13 | NUR ---
RN NOTES UNABLE TO CONTACT [facility]. CALLED [facility] FOR PT ARRANGEMENT FOR CREMATION. [facility] SAID THEY CANNOT TAKE INFORMATION WITHOUT [facility].
--- NOTE | 2021-02-11 21:30 | NUR ---
RN/ICU- TO KALLIE BARNES PER PROTOCOL.
== END 2021-02-11 06:20 ==
LOC: ER 01:11 → ICU 04:08 → UNDOADMIN 04:08 → ICU 05:03 → UNDODISIN 18:53
DX: A41.9 Sepsis, unspecified organism (principal); E43 Unspecified severe protein-calorie malnutrition; G92 Toxic encephalopathy; J96.01 Acute respiratory failure with hypoxia; N17.0 Acute kidney failure with tubular necrosis; R65.21 Severe sepsis with septic shock; N39.0 Urinary tract infection, site not specified; F41.9 Anxiety disorder, unspecified; E87.5 Hyperkalemia; Z85.828 Personal history of other malignant neoplasm of skin; K74.60 Unspecified cirrhosis of liver; Z51.5 Encounter for palliative care; G89.4 Chronic pain syndrome; M79.7 Fibromyalgia; J45.909 Unspecified asthma, uncomplicated; Z20.822 Contact with and (suspected) exposure to COVID-19
CPT/HCPCS: 31500; 31720; 36415; 36569; 36600 ×2; 51702; 71045 ×2; 80048; 80076; 81001; 82140; 82533; 82962 ×6; 83605 ×2; 83690; 84484; 85007; 85025; 85730; 86850; 86923; 87040 ×2; 87081; 87086; 87426; 92950; 93005 ×2; 96361; 96365; 96366; 96368; 96375; 96376; 99291; A6403; C9113 ×2; J0692; J1720 ×2; J1815; J2270; J2354 ×6; J2370; J2405; J3370; J3490 ×2; J7050 ×6; J7060; J7070; 82803-TC; 94002-TC; J7030; P9047